=== PATIENT | male | born 1995 | race Native Hawaiian/Other Pacific Islander ===

== ENCOUNTER 2020-01-07 10:39 | Emergency (ER) | payer OTHER ==
[~2020-01-07] VITALS: Ht 180.3 cm; Wt 113.4 kg
[2020-01-07] MEDS ORDERED: ABILIFY20 MG PO (11:06)
[2020-01-07] MEDS ORDERED: OMEPRAZOLE20 M1 PO (11:06)
[2020-01-07] MEDS ORDERED: MELOXICAM7.5 MG PO (11:07)
[2020-01-07 11:35] LABS: PLATELET COUNT 311 K/uL (142-355)
[2020-01-07 11:43] LABS: POTASSIUM 4.2 mmol/L (3.6-5.2)
[2020-01-07 12:10] VITALS: BP 147/84; TEMP 99
== END 2020-01-07 12:10 | disposition home or self-care (01) ==
LOC: ED 10:39
PROVIDERS: Family Medicine
DX: J20.9 Acute bronchitis, unspecified (principal)
CPT/HCPCS: 80053; 83605; 85027; 99283